=== PATIENT | female | born 1950 | race Caucasian/White ===

== ENCOUNTER → 2017-05-13 | Outpatient (CLI) | payer OTHER, MEDICARE ==
[~2017-05-13] MED LIST: ASPI325T6 PO; ASPIRIN 32325 MG/TA1 PO; CALCIUM 1200 601 SGL; CALCIUM CARBON600 M1 PO; FOLIC ACID 40400 MCG PO; GAVISCON F1 TAB.CHEW PO; GAVISCON500 MG PO; IBU600 MG PO; LEVAQUIN 750MG750 M1 PO; LYRICA 100MG C100 M1 PO; MELATONIN0.3 MG PO; MUCINEX 60600 MG/TAB PO; MUCINEX1200 MG PO; MULTIPLE VITAMI1 CAP PO; MVI; NEXIUM 40MG40 MG PO; NIFEREX-150150 MG PO; NORCO 325 MG-7.1 TAB PO; PRILOSEC 20MG20 MG PO; PROAIR HFA0.09 MG/AC IH; SINGULAIR 110 MG/TAB PO; SINGULAIR10 MG PO; TUMS E-X750 MG PO; TUMS ULTRA1000 MG PO; TYLENOL 500MG500 MG PO; ULTRAM 50MG TAB50 MG PO; VITAMIN C500 MG PO; ZANTAC; ZANTAC 150MG T150 MG PO; ZYRTEC 10MG10 MG PO; [UNRECOGNIZED DRUG - OTHER]
== END ==
LOC: MC.RAD 07:20
DX: Z12.31 Encounter for screening mammogram for malignant neoplasm of breast (principal)

== ENCOUNTER → 2018-06-18 | Outpatient (CLI) | payer OTHER | LOC: MC.RAD 14:37 | DX: Z12.31 Encounter for screening mammogram for malignant neoplasm of breast (principal) ==

== ENCOUNTER → 2018-07-28 | Outpatient (CLI) | payer OTHER ==
[2018-07-28 07:50] LABS: BASO % 0.7 % (0.0-2.0); EOS # 0.1 (0.0-0.7); EOS % 1.2 % (0-4.0); GRAN # 4.4 (1.4-6.5); GRAN % 72.9 % (42.2-75.2); HEMATOCRIT 42.3 % (37.0-47.0); HEMOGLOBIN 14.2 g/dl (12.5-16.0); LYMPH # 1.2 (1.2-3.4); LYMPH % 19.2 % (20.0-51.0); MEAN CELL VOLUME 92 fl (80.0-100.0); MEAN CORPUSCULAR HEMOGLOBIN 31 pg (27.0-31.0); MEAN CORPUSCULAR HGB CONC 34 g/dl (33.0-37.0); MEAN PLATELET VOLUME 9.7 fl (7.4-10.4); MONO # 0.3 (0.1-0.6); MONO % 5.7 % (1.7-9.3); PLATELET COUNT 259 K/mm3 (130-400); RED BLOOD COUNT 4.58 M/mm3 (4.10-5.30)
[2018-07-28 07:56] LABS: MUCOUS Present /lpf; PH 7 (5-8); SQUAMOUS EPITHELIAL None Seen /hpf; URINE APPEARANCE Clear; URINE BACTERIA None Seen /hpf; URINE BILIRUBIN Negative (NEGATIVE); URINE BLOOD Negative (NEGATIVE); URINE COLOR Yellow; URINE GLUCOSE Negative (NEGATIVE); URINE KETONE Negative (NEGATIVE); URINE LEUKOCYTE ESTERASE Negative (NEGATIVE); URINE NITRATE Negative (NEGATIVE); URINE PROTEIN(semi-quant) Negative (NEGATIVE); URINE RBC None Seen /hpf; URINE UROBILINOGEN Negative (NEGATIVE)
[2018-07-28 08:03] LABS: COLLECTION METHOD CLEAN CATCH
[2018-07-28 08:08] LABS: ALBUMIN 4.3 gm/dL (3.5-5.0); BILIRUBIN,TOTAL 0.6 mg/dL (0.0-1.0); CALCIUM 9.7 mg/dL (8.4-10.2); CHOLESTEROL RISK RATIO 4.4; CREATININE, serum 0.71 mg/dL (0.52-1.25); TOTAL PROTEIN 7.3 gm/dL (6.4-8.2)
[2018-07-28 08:37] LABS: THYROID STIMULATING HORMONE 1.02 uIU/mL (0.465-4.680)
== END ==
LOC: COL.LAB 07:11
PROVIDERS: Internal Medicine
DX: Z00.00 Encounter for general adult medical examination without abnormal findings (principal)

== ENCOUNTER → 2020-07-19 | Outpatient (CLI) | payer OTHER ==
[~2020-07-19] MED LIST changes: +NORCO 325 MG-51 TAB PO
== END ==
LOC: COL.RAD 12:40
DX: M18.12 Unilateral primary osteoarthritis of first carpometacarpal joint, left hand (principal); S52.512A Displaced fracture of left radial styloid process, initial encounter for closed fracture

== ENCOUNTER 2020-10-03 15:00 | Outpatient (RCR) | payer OTHER | END 2020-11-23 12:06 | disposition home or self-care (01) | LOC: WSOT 15:00 | DX: S52.512A Displaced fracture of left radial styloid process, initial encounter for closed fracture (principal) ==

== ENCOUNTER → 2020-12-13 | Outpatient (CLI) | payer OTHER | LOC: MC.RAD 14:39 | DX: Z12.31 Encounter for screening mammogram for malignant neoplasm of breast (principal) ==

== ENCOUNTER 2022-02-12 07:34 | Day surgery (SDC) | payer MEDICARE, OTHER ==
[~2022-02-12] VITALS: Ht 165.1 cm; Wt 80.4 kg
[2022-02-12] MEDS ORDERED: LIPITOR 10MG10 MG PO (07:59)
[2022-02-12 08:00] VITALS: BP 123/78; PULSE 69; TEMP 97.6
[2022-02-12] MEDS ORDERED: TURMERIC500 MG PO (08:00)
[2022-02-12 09:15] VITALS: BP 112/72; PULSE 83; TEMP 97.5
--- NOTE | 2022-02-12 09:22 | NUR ---
0915 - PT arrives and ambulated from cart to chair 2:1; warm blankes and monitors applied. VSS. PT oriented to room and call pate, within reach. PT denies pain and nausea. Verbal room report obtained from Jessica KNIGHT. PT provided with ice water, hot coffee, cream, sugar and toast w/ strawberry jam per request. Visitor is present. Will monitor per intervals.
[2022-02-12 09:30] VITALS: BP 111/73; PULSE 71
--- NOTE | 2022-02-12 09:32 | NUR ---
0930 - VSS. PT states desire to be discharged. Call pate remains within reach. PT has finished toast and continued to drink; denies nausea.
--- NOTE | 2022-02-12 09:53 | NUR ---
0945 - VSS. IV discontinued. Catheter tip intact. Pressure bandage applied. NO redness or swelling noted. DC instructions and edcuational material reviewed with the PT, who verbalized understanding and signed the related paperwork. Questions answered to PT satisfaction. PT denied needing RN assistance changing, however, call pate remains within reach. Visitor remains present.
--- NOTE | 2022-02-12 10:06 | NUR ---
1005 - PT dismissed from endo via wheelchair to PT entrence by Alley KNIGHT. PT has DC packet and personal belonings; and was transferred into the care of her , who is driving private truck.
== END 2022-02-12 10:05 | disposition home or self-care (01) ==
LOC: SDCO 07:34
DX: Z12.11 Encounter for screening for malignant neoplasm of colon (principal); K57.32 Diverticulitis of large intestine without perforation or abscess without bleeding; K62.1 Rectal polyp
CPT/HCPCS: J2704; J7120

== ENCOUNTER → 2024-05-10 | Outpatient (CLI) | payer MEDICARE, OTHER ==
[~2024-05-10] MED LIST changes: +LIPITOR 10MG10 MG PO; +TURMERIC500 MG PO
== END ==
LOC: MC.RAD 09:22
DX: Z12.31 Encounter for screening mammogram for malignant neoplasm of breast (principal)